=== PATIENT | female | born 1975 | race Caucasian/White ===

== ENCOUNTER 2023-08-15 16:08 | Emergency (ER) | payer OTHER, SELFPAY ==
[2023-08-15 16:10] VITALS: BP 133/84
[2023-08-15 16:29] LABS: % Eosinophils 2.6 % (0-6); % Immature Granulocytes 0.3 % (0-0.5); % Lymphocytes 37.3 % (20.5-51.1); % Monocytes 7.3 % (1.7-9.3); % Neutrophils 51.5 % (42.2-75.2); Absolute Basophils 0.1 10^3/uL (0-0.2); Absolute Eosinophils 0.2 10^3/uL (0-0.7); Absolute Lymphocytes 2.7 10^3/uL (1.2-3.4); Absolute Monocytes 0.5 10^3/uL (0.1-0.6); Absolute Neutrophils 3.7 10^3/uL (1.4-6.5); Hematocrit 39.2 % (37.0-47.0); Hemoglobin 13.1 g/dL (12.0-16.0); Mean Corp Hgb Conc. 33.4 g/dL (33.0-37.0); Mean Corpuscular Volume 77.9 fL (81.0-99.0); Mean Platelet Volume 10.8 fL (7.4-10.4); Nucleated Red Blood Cells % 0 %; Platelet Count 328 10^3/uL (130-400); Red Blood Cell Count 5.03 10^6/uL (4.20-5.40); Red Cell Dist. Width 15.2 % (11.5-14.5); White Blood Cell Count 7.2 10^3/uL (4.8-10.8)
[2023-08-15 16:46] LABS: ALT (SGPT) 18 U/L (0-35); AST (SGOT) 24 U/L (14-36); Albumin 4.7 g/dl (3.5-5.0); Alkaline Phosphatase 59 U/L (38-126); Blood Urea Nitrogen 12 mg/dl (7-17); Carbon Dioxide 26 mmol/L (22-30); Chloride 103 mmol/L (98-107); Glucose 98 mg/dl (70-99); Potassium 3.8 mmol/L (3.5-5.1); Sodium 140 mmol/L (135-145); Total Bilirubin 0.4 mg/dl (0.2-1.3); Total Protein 7.6 g/dl (6.3-8.2); eGFR > 60.00
[2023-08-15 16:51] LABS: Troponin I < 0.012 ng/ml
--- NOTE | 2023-08-15 17:10 | ED.GENMED ---
History of Present Illness
General
Chief Complaint: Chest Pain
Time Seen by Provider: 08/15/23 17:10
History of Present Illness
History of Present Illness:
HPI: Patient presents from urgent care related to chest pain associated with left upper extremity paresthesias. The symptoms started approximately 5 hours ago. Initially started around the left breast region and then she developed the pins and
needle sensation of the left arm. She had no shortness of breath. She had no diaphoresis. She has no exertional symptoms. She has not had any symptoms over the last couple of hours. She initially went to urgent care where she was told she had
an abnormal EKG and was referred here.
EXAM:
GENERAL: Well appearing in no distress
HEENT: Moist oral mucosa
CARDIOVASCULAR: No murmurs, normal heart rate, regular rhythm, No chest wall tenderness
PULMONARY: No respiratory distress, breath sounds are clear and equal
ABDOMEN: Soft with no peritoneal signs, no tenderness
NEUROLOGIC: Excellent strength all extremities, no coordination deficits
PSYCHIATRIC: Appropriate mental status, normal insight and judgement
EXTREMITIES: Nontender, no edema, moves all extremities equally
SKIN: No rash, no lesions
TIME OF INITIAL ENCOUNTER: 5:15 PM
NUMBER AND COMPLEXITY OF PROBLEMS ADDRESSED AT THE ENCOUNTER
� Chronic conditions affecting care: Denies any significant past medical history
� Acute Exacerbation and/or Progression of Chronic Illness: This is an acute problem
� Differential Diagnosis includes:Noncardiac chest pain, chest wall pain, ACS very unlikely
AMOUNT AND/OR COMPLEXITY OF DATA TO BE REVIEWED AND ANALYZED
� I performed an independent evaluation of and my interpretation is:
EKG: Sinus 66, normal axis, no acute ST abnormality
CT:
X-rays:
Laboratory Studies: CBC unremarkable, chemistries including troponin unremarkable
Other:
� Review of other/old records: No old records available for review
� Clinical information was obtained by an independent historian: I spoke to family at bedside
� Prescriptions/Medications Considered but not given:
� Further testing considered but not performed:
RISK OF COMPLICATIONS AND/OR MORBIDITY OR MORTALITY OF PATIENT MANAGEMENT
� Social determinants of health affecting care: Lives at home
� Discussion with other providers: I did speak to the urgent care physician who sent her in here earlier today.
� Escalation of care including admission/observation vs risk of discharge considered: The patient had some atypical sounding chest discomfort that started 5 hours ago and troponin was drawn 1 hour ago. She has not had any
further chest pain. She does not have any exertional symptoms. She has troponin that was negative. Encourage close outpatient follow-up with cardiology.
Phy Exam
Physical Exam
Physical Exam:
See HPI
Scores
Heart Score for Chest Pain Patients
STEMI patient?: Not applicable
Course
Orders/Labs/Results
Orders:
Orders
08/15/23 16:15
Electrocardiogram (*1) Urgent
Reason for Study: Chest Pain
EKG- Treatment ONCE
08/15/23 16:23
CMP [Comprehensive Metabolic Panel] Urgent
Complete Blood Count/With Diff Urgent
Troponin I Urgent
Abnormal Lab Results
08/15/23
16:23
MCV 77.9 L fL
(81.0-99.0)
MCH 26.0 L pg
(27.0-31.0)
RDW 15.2 H %
(11.5-14.5)
MPV 10.8 H fL
(7.4-10.4)
08/15/23 16:23
08/15/23 16:23
Vital Signs
Initial and Last Documented VS:
Initial Vital Signs
Temp Pulse Resp BP Pulse Ox
98.1 F 66 16 133/84 98
08/15/23 16:10 08/15/23 16:10 08/15/23 16:10 08/15/23 16:10 08/15/23 16:10
Last Documented Vital Signs
Temp Pulse Resp BP Pulse Ox
98.1 F 60 18 103/71 98
08/15/23 16:10 08/15/23 17:21 08/15/23 17:21 08/15/23 17:21 08/15/23 17:21
*Critical Care Note
Total Time (30-74mins, 75-104mins- exclusive of procedures): Not Applicable
ED Attending Note
-
Portions of this chart may have been created with voice recognition software.� Occasional wrong word or��sound alike� substitutions may have occurred due to the inherent limitations of voice recognition software.
Discharge Plan
Departure
Patient Disposition: Home (Routine Discharge)
Date of Disposition: 08/15/23
Time of Disposition: 17:18
Patient with high blood pressure during this ER visit?: Yes
Discharge Problem:
Chest pain
Instructions: Chest Pain [facility] Follow Up
Referrals:
Mohan Sahu MD [Active] - Follow up in 2-3 days
Activity Restrictions/Additional Instructions:
Cardiac blood work is normal. EKG here appears normal. There is no sign of heart attack based on your cardiac blood work. However, it is still possible you could have underlying coronary disease. I recommend that you follow-up with a
engineer exhauster such as Dr. Castro from their office should be calling you for follow-up. Return here if worse.
Interventions
Interventions:
*Risk Screen - Suicide Last Done: 08/15/23 17:22
*General Assessment Last Done: 08/15/23 17:22
*Neglect/Abuse Screening Last Done: 08/15/23 17:22
*ED COVID-19 Vaccine History Last Done: 08/15/23 17:22
*Nursing Disposition Last Done: 08/15/23 17:44
ED- Cardiac Assessment Last Done: 08/15/23 17:00
Discharge Date and Time
Discharge Date/Time: 08/15/23 17:45
Print Language: ROMANIAN
[2023-08-15 17:21] VITALS: BP 103/71
== END 2023-08-15 17:45 | disposition home or self-care (01) ==
LOC: EMR 16:08
PROVIDERS: EMERGENCY PHYSICIAN Emergency Medicine
DX: R07.89 Other chest pain (principal); R20.2 Paresthesia of skin
CPT/HCPCS: 99283; 80053; 84484; 85025; 93005